=== PATIENT | female | born 1965 | race Caucasian/White ===

== ENCOUNTER 2021-10-11 16:07 | Outpatient (CLI) | payer OTHER ==
[2021-10-11 17:20] LABS: Mean Corpuscular HGB CONC 32.1 g/dL (32.0-36.0); Mean Corpuscular Volume 87.3 fl (81.6-98.3); Mean Platelet Volume 9.6 fl (7.4-10.4); Platelet Count 326 10x3/uL (150-450); RBC Distribution Width 12.2 % (11.5-14.5); Red Blood Cell (RBC) Count 4.64 10x6/uL (3.90-5.03); White Blood Cell (WBC) Count 7.6 10x3/uL (3.5-10.5)
[2021-10-11 17:32] LABS: Anion Gap 12 mmol/L (10-20); BUN (Urea Nitrogen) 15 mg/dL (9.8-20.1); Calc. Creatinine Clearance 0 mL/min (70-130); Calcium 9.1 mg/dL (7.8-10.44); Carbon Dioxide 25 mmol/L (22-29); Chloride 106 mmol/L (98-107); Glucose 97 mg/dL (70-105); Potassium 3.6 mmol/L (3.5-5.1); Sodium 139 mmol/L (136-145)
[2021-10-12 12:02] LABS: SARS-CoV-2 PCR by NAA Not Detected (NotDetected)
== END 2021-10-11 16:08 | disposition home or self-care (01) ==
LOC: LABBT 16:07
PROVIDERS: ATTEND Neurological Surgery
DX: Z01.818 Encounter for other preprocedural examination (principal); M54.12 Radiculopathy, cervical region; Z20.822 Contact with and (suspected) exposure to COVID-19
CPT/HCPCS: 80048; 85027; 93005; 93010; U0003; U0005

== ENCOUNTER 2021-10-16 05:36 | Observation (INO) | payer OTHER ==
[2021-10-13 10:45] VITALS: BMI 26.5
[2021-10-16] MEDS ORDERED: ceFAZolin 2 GM/DEX 5% 100 ML BAG ONE (06:09)
[2021-10-16] MEDS ORDERED: Neomycin-Polymyxin 1 ML AMP ONE (06:43)
[2021-10-16] MEDS ORDERED: Midazolam HCl 2 mg/2 ml Vial ONE (06:46)
[2021-10-16] MEDS ORDERED: Fentanyl 250 MCG/5 ML VIAL ONE (06:46)
[2021-10-16] MEDS ORDERED: Glycopyrrolate 0.2 MG/ML 5 ML SYRINGE ONE (07:25)
[2021-10-16] MEDS ORDERED: PROPOFOL 200 MG/20 ML VIAL ONE (07:25)
[2021-10-16] MEDS ORDERED: Rocuronium Bromide 10 MG/ML (10ML VIAL) ONE (07:25)
[2021-10-16] MEDS ORDERED: Metoclopramide HCl 10 MG/2 ML VIAL ONE (07:25)
[2021-10-16] MEDS ORDERED: Ondansetron PF 4 MG/2 ML Vial ONE (07:25)
[2021-10-16] MEDS ORDERED: Lidocaine 1% PF 5 ML VIAL ONE (07:25)
[2021-10-16] MEDS ORDERED: Ketorolac Tromethamine 30 MG/ML VIAL IVP PRN (08:55)
[2021-10-16] MEDS ORDERED: Promethazine HCl 25 MG/ML VIAL IVPB PRN (08:55)
[2021-10-16] MEDS ORDERED: Ondansetron HCl/PF 4 MG/2 ML Vial IVP PRN (08:55)
[2021-10-16] MEDS ORDERED: Promethazine HCl 25 MG/ML VIAL IM PRN ×2 (08:55→12:15)
[2021-10-16] MEDS ORDERED: HYDROmorphone 2 MG/ML VIAL SLOW IVP PRN (08:55)
[2021-10-16] MEDS ORDERED: HYDROmorphone 0.5 MG/0.5 ML SYRINGE ONE ×2 (08:56→09:02)
[2021-10-16] MEDS ORDERED: Ketorolac Tromethamine 30 MG/ML VIAL ONE (09:04)
[2021-10-16] MEDS ORDERED: Fentanyl 100 MCG/2 ML VIAL ONE (09:16)
[2021-10-16] MEDS ORDERED: Promethazine 25 MG TAB PO PRN (12:15)
[2021-10-16] MEDS ORDERED: Milk Of Magnesia 30 ML UDCUP PO PRN (12:15)
[2021-10-16] MEDS ORDERED: tiZANidine HCl 4 MG TAB PO PRN (12:15)
[2021-10-16] MEDS ORDERED: Acetaminophen 650 MG Suppository PR PRN (12:15)
[2021-10-16] MEDS ORDERED: Mag-Al 1200 mg/1200 mg/30 ML UDCUP PO PRN (12:15)
[2021-10-16] MEDS ORDERED: Ondansetron PF 4 MG/2 ML Vial IVP PRN (12:15)
[2021-10-16] MEDS ORDERED: Promethazine HCl 12.5 MG SUPP PR PRN (12:15)
[2021-10-16] MEDS ORDERED: diphenhydrAMINE 25 MG CAP PO PRN (12:15)
[2021-10-16] MEDS ORDERED: Acetaminophen/Codeine 30-300mg Tablet PO PRN ×2 (12:15)
[2021-10-16] MEDS ORDERED: diphenhydrAMINE 50 MG/ML VIAL IVP PRN (12:15)
[2021-10-16] MEDS: ceFAZolin Sodium/D5W 2 GM in Premix Bag 1 BAG IVPB SCH ×2 (15:00→21:20)
[2021-10-16] MEDS: Ketorolac Tromethamine 30 MG/ML VIAL IVP SCH ×2 (17:57→23:13)
[2021-10-16] MEDS: Sodium Chloride 0.9% 1,000 ML IV SCH ×2 (19:12→23:20)
[2021-10-16] MEDS: Acetaminophen 325 MG TAB PO PRN (23:22)
[2021-10-17] MEDS: Ketorolac Tromethamine 30 MG/ML VIAL IVP SCH (05:43)
[2021-10-17] MEDS ORDERED: CEFAZOLIN 2 GM, Admixture Fee 1 EACH in Sodium Chloride 0.9% 100 ML IVPB SCH (06:00)
[2021-10-17] MEDS: Acetaminophen 325 MG TAB PO PRN (06:41)
[2021-10-17 07:48] VITALS: BP 151/91; TEMP 97.8
== END 2021-10-17 11:15 | disposition home or self-care (01) ==
LOC: SDC 05:36 → SURG A 10:14
PROVIDERS: ADMIT Neurological Surgery; ATTEND Neurological Surgery
PROC: 0RJ10ZZ Inspection of Cervical Vertebral Joint, Open Approach (ICD-10-PCS; principal; 2021-10-16)
PROC: 0RG10A0 Fusion of Cervical Vertebral Joint with Interbody Fusion Device, Anterior Approach, Anterior Column, Open Approach (ICD-10-PCS; 2021-10-16)
DX: M47.22 Other spondylosis with radiculopathy, cervical region (principal); I10 Essential (primary) hypertension; E11.9 Type 2 diabetes mellitus without complications; M19.90 Unspecified osteoarthritis, unspecified site; Z79.899 Other long term (current) drug therapy; Z88.2 Allergy status to sulfonamides; Z88.5 Allergy status to narcotic agent; Z98.1 Arthrodesis status
CPT/HCPCS: 76000; 96365; 96375; 96376; C1713; C1776; G0378; J0690; J1170; J1885; J2250; J2405; J2704; J2765; J3010; J3490; J7050

== ENCOUNTER 2021-10-31 12:54 | Outpatient (CLI) | payer OTHER | END 2021-10-31 12:55 | disposition home or self-care (01) | LOC: TBSIIMAG 12:54 | PROVIDERS: ATTEND Neurological Surgery | DX: M47.22 Other spondylosis with radiculopathy, cervical region (principal); Z98.1 Arthrodesis status | CPT/HCPCS: 72040 ==

== ENCOUNTER 2022-06-22 12:30 | Outpatient (CLI) | payer OTHER | END 2022-06-22 12:31 | disposition home or self-care (01) | LOC: TBSIIMAG 12:30 | PROVIDERS: ATTEND Physician Assistant | DX: M54.12 Radiculopathy, cervical region (principal); Z98.1 Arthrodesis status | CPT/HCPCS: 72040 ==